=== PATIENT | male | born 1985 | race Caucasian/White ===

== ENCOUNTER 2022-01-26 01:47 | Emergency (ER) | payer OTHER ==
[2022-01-26 02:07] VITALS: BP 121/77; PULSE 89; RESP 20; TEMP 97.1; BMI 27.3
[2022-01-26] MEDS ORDERED: IBUPROFEN 400 MG TABLET (FP) PO ONE ×2 (02:25→03:14)
== END 2022-01-26 05:00 | disposition home or self-care (01) ==
LOC: JER 01:47
DX: M79.671 Pain in right foot (principal)
CPT/HCPCS: 73610-TC-RT-FY; 73630-TC-RT-FY; 99283-25

== ENCOUNTER 2022-06-13 22:38 | Emergency (ER) | payer OTHER ==
[2022-06-13 23:07] VITALS: BP 127/81; PULSE 80; RESP 18; TEMP 98.2; BMI 34.4
[2022-06-14] MEDS ORDERED: KETOROLAC TROMETHAMINE 15 MG/ML VIAL IM ONE (00:34)
[2022-06-14] MEDS ORDERED: KETOROLAC TROMETHAMINE 15 MG/ML VIAL ONE (00:43)
== END 2022-06-14 01:36 | disposition home or self-care (01) ==
LOC: JER 22:38
PROC: 3E023GC Introduction of Other Therapeutic Substance into Muscle, Percutaneous Approach (ICD-10-PCS; principal; 2022-06-13)
DX: M54.89 Other dorsalgia (principal)
CPT/HCPCS: 71046-TC-FY; 96374; 99284-25